=== PATIENT | female | born 1955 | race Caucasian/White ===

== ENCOUNTER 2017-05-01 10:51 | Emergency (ER) | payer OTHER ==
--- NOTE | 2017-05-01 11:57 | RAD ---
HISTORY: Pain, status post fall COMPARISONS: None VIEWS: 3, Frontal view of the pelvis with frontal and frog-leg views of the left hip FINDINGS: BONE DENSITY: Normal. BONES: The patient is status post left hip arthroplasty. There are comminuted fractures of the left superior and inferior pubic rami. JOINTS: There is no arthropathy. ALIGNMENT: There is no dislocation. SOFT TISSUES: Unremarkable. OTHER FINDINGS: None. IMPRESSION: 1. COMMINUTED FRACTURES OF LEFT SUPERIOR AND INFERIOR PUBIC RAMI. 2. SINUS POST LEFT HIP ARTHROPLASTY.
[2017-05-01 12:00] LABS: ABS Basophils 0.1 10^3/ul (0-0.2); ABS Eosinophils 0.1 10^3/ul (0-0.6); ABS Lymphocytes 0.9 10^3/ul (1.0-4.8); ABS Monocytes 0.5 10^3/ul (0-0.8); ABS Neutrophils 5.5 10^3/ul (1.5-7.7); ABS Nucleated RBC 0 10^3/ul; Eosinophil % 1.1 % (0-6); Hematocrit 39 % (35-47); Lymphocyte % 12.8 % (25-47); Mean Corpuscular HGB Conc 33 g/dl (31-36); Mean Corpuscular Hemoglobin 31 pg (27-31); Mean Corpuscular Volume 92 fL (80-97); Mean Platelet Volume 9 um3 (7.4-10.4); Nucleated Red Blood Cells % 0.1; Platelet Count 262 10^3/ul (150-450); Red Blood Count 4.28 10^6/ul (4.0-5.4); Red Cell Distribution Width 15 % (10.5-15)
[2017-05-01] MEDS ORDERED: Ondansetron INJ* 2 MG/ML VIAL IV ONE (12:05)
[2017-05-01] MEDS ORDERED: Morphine INJ* 4 MG/ML 1 ML CARPUJECT IV ONE (12:05)
[2017-05-01] MEDS ORDERED: Morphine INJ* 4 MG/ML 1 ML SYRINGE (NEW SYRINGE VERSION) ONE (12:10)
[2017-05-01 12:19] LABS: EGFR Non-African American 65.8 (>60)
--- NOTE | 2017-05-01 14:18 | RAD ---
Indication: Superior and inferior pubic ramus fracture sustained in fall. Comparison: Radiographs of the same date. Technique: Multidetector CT pelvis without contrast. Multiplanar reformation with bone algorithm. Report: Segmental mildly impacted superior and inferior pubic ramus fractures with extension to the os pubis. Associated subtle acute sagittal oriented LEFT sacral ala fracture without significant displacement. Negative for pelvic joint diastases. Negative for immediate adjacent periprosthetic fracture with regard to the acetabular component of the LEFT hip prosthesis. No evidence for periprosthetic fracture at the visualized femoral component of the hip prosthesis. Small volume of intramuscular hematoma at the LEFT piriformis, obturator internus, and obturator externus. Negative for free pelvic fluid. No suspicious finding of the visualized pelvic viscera. Lumbar sacral spine degenerative spondylosis and facet joint osteoarthritis. IMPRESSION: 1. Segmental mildly impacted superior and inferior pubic ramus fractures with extension to the os pubis. Associated subtle acute sagittal oriented LEFT sacral ala fracture without significant displacement. 2. Small volume of intramuscular hematoma at the LEFT piriformis, obturator internus, and obturator externus.
[2017-05-01 14:37] LABS: Urine Appearance Cloudy; Urine Blood Negative (Negative); Urine Color Yellow; Urine Ketones Negative (Negative); Urine Protein Negative (Negative); Urine Specific Gravity 1.015 (1.010-1.030); Urine Urobilinogen Negative (Negative)
[2017-05-01 16:39] VITALS: BP 127/74
--- NOTE | 2017-05-03 08:33 | ED ---
Mahendra Chopra Angela, scribed for Jose Cruz Smith MD on 05/01/17 at 1103 . Adult Trauma - HPI Summary HPI Summary: This pt is a 61 y/o female presenting to [facility] c/o left groin pain s/p mechanical fall today. Pt reports she was walking towards the garbage can when she fell sideways on her left hip. Pt notes she has a left artificial hip. She states that after she struck her left hip she hit her head. Denies LOC. Pt denies headache. Pt is from [place], [place] and is in [place] to babysit her grandchildren. - History of Current Complaint Chief Complaint: EDTraumaMultiple Stated Complaint: FALL Time Seen by Provider: 05/01/17 11:01 Hx Obtained From: Patient Mechanism of Injury: Fall Ambulatory at the Scene: Yes Loss of Consciousness: no loss of consciousness Onset/Duration: Started Hours Ago, Traumatic, Still Present Onset of Pain: Immediate Current Severity: Mild Pain Intensity: 3 Pain Scale Used: 0-10 Numeric Location: Other - left groin pain Aggravating Factor(s): Nothing Alleviating Factor(s): Nothing Associated Signs & Symptoms: Positive: Negative - Allergy/Home Medications Allergies/Adverse Reactions: Allergies Allergy/AdvReac Type Severity Reaction Status Date / Time No Known Allergies Allergy See Comment Verified 05/01/17 10:59 PMH/Surg Hx/FS Hx/Imm Hx Endocrine/Hematology History: Denies: Hx Diabetes Cardiovascular History: Denies: Hx Hypertension Psychiatric History: Reports: Hx Anxiety, Other Psychiatric Issues/Disorders - OCD - Surgical History Surgery Procedure, Year, and Place: 2 left knee surgeries Infectious Disease History: No Infectious Disease History: Denies: Traveled Outside the in Last 30 Days - Family History Known Family History: Positive: Hypertension Family History: high cholesterol - Social History Alcohol Use: Occasionally Substance Use Type: Reports: None Smoking Status (MU): Never Smoked Tobacco Review of Systems Negative: Fever, Chills Eyes: Negative ENT: Negative Cardiovascular: Negative Respiratory: Negative Musculoskeletal: Other - left groin pain Negative: Headache All Other Systems Reviewed And Are Negative: Yes Physical Exam - Summary Physical Exam Summary: VITAL SIGNS: Reviewed. GENERAL: Patient is a well-developed and nourished female who is lying comfortable in the stretcher. Patient is not in any acute respiratory distress. HEAD AND FACE: No signs of trauma. No ecchymosis, hematomas or skull depressions. No sinus tenderness. EYES: PERRLA, EOMI x 2, No injected conjunctiva, no nystagmus. EARS: Hearing grossly intact. Ear canals and tympanic membranes are within normal limits. MOUTH: Oropharynx within normal limits. NECK: Supple, trachea is midline, no adenopathy, no JVD, no carotid bruit, no c- spine tenderness, neck with full ROM. CHEST: Symmetric, no tenderness at palpation LUNGS: Clear to auscultation bilaterally. No wheezing or crackles. CVS: Regular rate and rhythm, S1 and S2 present, no murmurs or gallops appreciated. ABDOMEN: Soft, non-tender. No signs of distention. No rebound no guarding, and no masses palpated. Bowel sounds are normal. EXTREMITIES: no edema, no cyanosis or clubbing. Decreased ROM of the left lower extremity secondary to pain. NEURO: Alert and oriented x 3. No acute neurological deficits. Speech is normal and follows commands. SKIN: Dry and warm Triage Information Reviewed: Yes Vital Signs On Initial Exam: Initial Vitals Temp Pulse Resp BP Pulse Ox 99.3 F 79 16 155/78 99 05/01/17 10:57 05/01/17 10:57 05/01/17 10:57 05/01/17 10:57 05/01/17 10:57 Vital Signs Reviewed: Yes Diagnostics - Vital Signs Vital Signs Temp Pulse Resp BP Pulse Ox 05/01/17 10:57 99.3 F 79 16 155/78 99 - Laboratory Result Diagrams: 05/01/17 11:35 05/01/17 11:35 Lab Statement: Any lab studies that have been ordered have been reviewed, and results considered in the medical decision making process. - Radiology Left hip and Pelvis XR Xray Interpretation: Positive (See Comments) - IMPRESSION: 1. Comminuted fractures of the left superior and inferior pubic rami. 2. Sinus post left hip arthroplasty. Dr. Smith has reviewed this radiology report. Radiology Interpretation Completed By: Radiologist - CT Pelvis CT CT Interpretation: Positive (See Comments) - IMPRESSION: 1. Segmental mildly impacted superior and inferior pubic ramus fractures with extension to the os pubis. Associated subtle acute sagittal oriented LEFT sacral ala fracture without significant displacement. 2. Small volume of intramuscular hematoma at the LEFT piriformis, obturator internus, and obturator externus. Dr. Smith has reviewed this radiology report. CT Interpretation Completed By: Radiologist - EKG 11:33 Cardiac Rate: NL EKG Rhythm: Sinus Rhythm - at 69 bpm EKG Interpretation: No ST elevation. Adult Trauma Course/Dx - Course Assessment/Plan: This pt is a 61 y/o female presenting to [facility] c/o left groin pain s/p mechanical fall today. Pt reports she was walking towards the garbage can when she fell sideways on her left hip. Pt notes she has a left artificial hip. She states that after she struck her left hip she hit her head. Denies LOC. Pt denies headache. Pt is from out of town and is in [place] to babysit her grandchildren. Test results without any significant abnormalities. Urinalysis is negative for UTI. Left hip and pelvis XR: 1. Comminuted fractures of the left superior and inferior pubic rami. 2. Sinus post left hip arthroplasty. The pt had 2 doses of morphine, Zofran, and IV fluids. The pt had a hard time going to the commode because of the pain. I discussed the XR results with Dr. Lyons, orthopedist, who recommends a CT of the pelvis. CT Pelvis: 1. Segmental mildly impacted superior and inferior pubic ramus fractures with extension to the os pubis. Associated subtle acute sagittal oriented LEFT sacral ala fracture without significant displacement. 2. Small volume of intramuscular hematoma at the LEFT piriformis, obturator internus, and obturator externus. I intended to admit the pt since she is having difficulty ambulating, however the pt declined admission. She reports that she will be able to ambulate with a walker. She was given a walker and was able to ambulate in the ED. Therefore she will be discharged home with follow up from her PCP. She will be given a prescription for [place] and will be discharged with her son. Pt is hemodynamically stable, alert and oriented x3. - Diagnoses Provider Diagnoses: Pelvic fracture - Physician Notifications Discussed Care Of Patient With: Justen Cm Time Discussed With Above Provider: 15:13 Instructed by Provider To: Other - I discussed pt care with Dr. Cm, hospitalist, who has agreed to admit the pt. Discharge - Discharge Plan Condition: Stable Disposition: HOME Prescriptions: Hydrocodone/Acetaminophen [[place] 5-325 mg] 1 tab PO Q6H PRN #15 tab MDD 4 PRN Reason: Pain Patient Education Materials: Pelvic Fracture (ED) Referrals: No Primary Care Phys,NOPCP [Primary Care Provider] - [facility]YSICIAN REFERRAL [Outside] Additional Instructions: Please follow up with your primary care provider. RETURN TO THE ED FOR ANY WORSENING SYMPTOMS. The documentation as recorded by the Mahendra jean Angela accurately reflects the service I personally performed and the decisions made by me, Jose Cruz Smith MD.
--- NOTE | 2017-05-03 12:57 | PN ---
Progress Note - Progress Note Date of Service: 05/03/17 Note: Patient urine culture grew E coli 25-50,000. likely a contaminant so will not treat at this time.
--- NOTE | 2017-05-04 12:03 | ED ---
Progress - Progress Note Progress Note: Patient's final urine culture reveals 25-50,000 Escherichia coli. Her sensitivity panel reveals multiple antibiotics that could be used to treat this organism however patient indicates she is not having any urinary tract infection symptoms including but not limited to dysuria, urinary frequency, flank pain, fevers, chills, abdominal pain, pelvic pain, nausea, vomiting, diarrhea. She was seen in the ED for a pelvic fracture the day urine was collected. She agrees with plan to avoid treatment for urinary tract infection and she does not seem to have one of these. However she will follow-up with her PCP if symptoms present return to the emergency department if she is unable to obtain an appointment with her primary care physician. Course/Dx - Diagnoses Provider Diagnoses: Pelvic fracture - Provider Notifications Time Discussed With Above Provider: 15:13 Instructed by Provider To: Other - I discussed pt care with Dr. Cm, hospitalist, who has agreed to admit the pt.
== END 2017-05-01 16:38 | disposition home or self-care (01) ==
LOC: ED 10:51
DX: S32.512A Fracture of superior rim of left pubis, initial encounter for closed fracture (principal); W19.XXXA Unspecified fall, initial encounter; Y93.01 Activity, walking, marching and hiking; Y92.9 Unspecified place or not applicable; Z96.642 Presence of left artificial hip joint
CPT/HCPCS: 36415; 72192; 80053; 81003; 81015; 85025; 86140; 87077; 87086; 87186; 93005; 96374; 96375; 99283; J2270; J2405

== ENCOUNTER 2018-06-23 08:44 | Emergency (ER) | payer OTHER ==
[2018-06-23 09:02] VITALS: BP 135/78
[2018-06-23] MEDS ORDERED: Albuterol/Ipratropium NEB.SOL* Albuterol 2.5 MG/Ipratropium 0.5 MG 3 ML INH ONE (09:07)
--- NOTE | 2018-06-23 09:11 | UC ---
Respiratory Complaint HPI - HPI Summary HPI Summary: 62 -year-old female who had flulike symptoms on Monday of this past week with fever, chills, body aches. She has had a cough which she states is now productive of yellow sputum. She has a history of asthma in the past however she is on no present medications for that. She is a nonsmoker. She did receive a flu shot last year. She states now she has had some wheezing as well as a productive cough. - History of Current Complaint Chief Complaint: UCGeneralIllness Stated Complaint: COUGH Time Seen by Provider: 06/23/18 08:50 Hx Obtained From: Patient ?: No Onset/Duration: Gradual Onset Timing: Intermittent Episodes Severity Initially: Moderate Severity Currently: Mild Pain Intensity: 0 Character: Cough: Productive - Productive cough of yellow sputum. Alleviating Factors: Nothing Associated Signs And Symptoms: Positive: Fever, Chills, Wheezing, Nasal Congestion - Flulike symptoms 3 days ago. - Risk Factors Pulmonary Embolism Risk Factors: Negative Cardiac Risk Factors: Negative Pseudomonas Risk Factors: Negative Tuberculosis Risk Factors: Negative - Allergies/Home Medications Allergies/Adverse Reactions: Allergies Allergy/AdvReac Type Severity Reaction Status Date / Time No Known Allergies Allergy See Comment Verified 06/23/18 08:51 Home Medications: Home Medications Clomipramine HCl [Anafranil] 200 mg PO DAILY 06/23/18 [History Confirmed ] clonazePAM TAB(*) [KlonoPIN TAB(*)] 0.5 mg PO BEDTIME 06/23/18 [History Confirmed 06/23/18] PMH/Surg Hx/FS Hx/Imm Hx Previously Healthy: Yes - denies any chronic illnesses Respiratory History: Asthma - States she had asthma in the past however that resolved and she has not had any medications for that. - Surgical History Surgical History: Yes Surgery Procedure, Year, and Place: 1 Left knee surgery 1963. 1 Rgiht knee surgery 1966. hip implant 2016 - Family History Known Family History: Positive: Hypertension Family History: high cholesterol - Social History Alcohol Use: Daily Alcohol Amount: 1 cocktail/day Substance Use Type: None Smoking Status (MU): Never Smoked Tobacco Review of Systems All Other Systems Reviewed And Are Negative: Yes Constitutional: Positive: Fever, Chills - Emergency flulike symptoms on Monday 3 days ago. ENT: Positive: Nasal Discharge Respiratory: Positive: Cough - cough up yellow sputum with some wheezing the past 24 hours. Is Patient Immunocompromised?: No Physical Exam Triage Information Reviewed: Yes Appearance: Well-Appearing, No Pain Distress, Well-Nourished Vital Signs: Initial Vital Signs Temp 98 F 06/23/18 08:55 Pulse 79 06/23/18 08:55 Resp 18 06/23/18 08:55 BP 135/78 06/23/18 08:55 Pulse Ox 95 06/23/18 08:55 Vital Signs Reviewed: Yes Eye Exam: Normal ENT: Positive: Hearing grossly normal, Pharynx normal, TMs normal, Uvula midline. Negative: Tonsillar swelling, Tonsillar exudate, Trismus, Muffled voice Neck: Positive: Supple, Nontender, No Lymphadenopathy Respiratory: Positive: No respiratory distress, No accessory muscle use, Rhonchi - Rhonchi and wheezing throughout., Wheezing Cardiovascular Exam: Normal Musculoskeletal Exam: Normal Neurological Exam: Normal Psychological Exam: Normal Skin Exam: Normal Respiratory Course/Dx - Course Course Of Treatment: Chest x-ray findings:" There are linear densities at the bilateral lung bases causing blunting of the costophrenic angles. More superiorly the lungs are adequately aerated. The heart and mediastinum are normal in size and contour. The visualized bones are normal for the patient's age. There is no radiographic evidence of free air beneath the diaphragm. Impression: Chest x- ray findings are most consistent with small bibasilar pleural effusions. Patient was given a DuoNeb treatment which she did not feel improved her wheezing. After discussion and review of the x-ray with Dr. Sheldon, I put a treat this as a pneumonia. A CBC, CMP, and BNP are drawn here and we will call the patient with those results. I'm starting her on doxycycline 100 mg by mouth twice a day 10 days. I wanted to start her on an albuterol inhaler however she states she never uses them adequately therefore I'm starting her on prednisone 40 mg daily 5 days. She stated she did not need a prescription because her , who is a automated logistics specialist, as prednisone in his office. She is to call her primary care provider tomorrow to schedule an appointment for recheck. I advised her not to eat any dairy products, multivitamins or antacids 2 hours prior to taking doxycycline and 2 hours after taking but that she should take that on the prednisone with food. The patient is agreeable to this plan of action. She is to go to the emergency room for any worsening symptoms, chest pain or difficulty breathing. - Differential Dx/Diagnosis Provider Diagnosis: Community acquired pneumonia - Physician Notification/Consults Discussed Patient Care With: Deshawn Sheldon Time Discussed With Above Provider: 10:20 Discharge - Sign-Out/Discharge Documenting (check all that apply): Patient Departure All imaging exams completed and their final reports reviewed: Yes - Discharge Plan Condition: Fair Disposition: HOME Prescriptions: DOXYcycline CAP(*) [DOXYcycline 100MG CAP(*)] 100 mg PO BID 10 Days #20 cap Patient Education Materials: Community Acquired Pneumonia (DC) Referrals: [facility] [Outside] No Primary Care Phys,NOPCP [Primary Care Provider] - Additional Instructions: Increase fluids. Do not eat dairy products, antacids or multivitamins 2 hours before you take the doxycycline and 2 hours after you take the doxycycline however take the doxycycline with food. Contact her primary care provider on Monday to see when they would like to recheck you and also if they want to continue the prednisone past 5 days. Go to the emergency room if you develop difficulty breathing, worsening symptoms, chest pain. The lab results should be back tomorrow and we will call you if there is anything abnormal. - Billing Disposition and Condition Condition: FAIR Disposition: Home
[2018-06-23 14:59] LABS: ABS Basophils 0 10^3/ul (0-0.2); ABS Eosinophils 0.1 10^3/ul (0-0.6); ABS Lymphocytes 1.2 10^3/ul (1.0-4.8); ABS Monocytes 0.6 10^3/ul (0-0.8); ABS Neutrophils 3.1 10^3/ul (1.5-7.7); ABS Nucleated RBC 0 10^3/ul; Hematocrit 44 % (33-41); Hemoglobin 14.2 g/dL (12.0-16.0); Lymphocyte % 23.9 %; Mean Corpuscular HGB Conc 33 g/dL (31-36); Mean Corpuscular Hemoglobin 30 pg (27-31); Mean Corpuscular Volume 92 fL (80-97); Mean Platelet Volume 10.3 fL (7.4-10.4); Nucleated Red Blood Cells % 0; Platelet Count 180 10^3/uL (150-450); Red Blood Count 4.75 10^6 /uL (3.70-4.87); Red Cell Distribution Width 14 % (10.5-15)
[2018-06-23 15:03] LABS: Calcium 8.9 mg/dL (8.6-10.3); Potassium 3.6 mmol/L (3.5-5.0); Total Bilirubin 0.3 mg/dL (0.2-1.0)
[2018-06-23 15:09] LABS: Albumin/Globulin Ratio 1.5 (1-3); BUN/Creatinine Ratio 18.7 (8-20); EGFR African American 94.1 (>60); EGFR Non-African American 77.8 (>60); Globulin 2.7 g/dL (2-4); Total Protein 6.7 g/dL (6.4-8.9)
== END 2018-06-23 10:30 | disposition home or self-care (01) ==
LOC: UCEAST 08:44
DX: J18.8 Other pneumonia, unspecified organism (principal); J45.909 Unspecified asthma, uncomplicated
CPT/HCPCS: 36415; 71046; 80053; 83880; 85025; 99212; A9270-GY; G0463